=== PATIENT | female | born 1965 | race Caucasian/White ===

== ENCOUNTER → 2022-08-03 11:00 | Outpatient (BNVA) | payer SELFPAY | PROVIDERS: Family Provider Family Medicine; PCP Family Medicine; Visit Provider Family Medicine | DX: E11.65 Type 2 diabetes mellitus with hyperglycemia (principal); I10 Essential (primary) hypertension | CPT/HCPCS: 83036 ==

== ENCOUNTER → 2022-08-13 08:52 | Outpatient (BNVA) | payer SELFPAY | PROVIDERS: Family Provider Family Medicine; PCP Family Medicine; Visit Provider Family Medicine | DX: I10 Essential (primary) hypertension (principal); E11.9 Type 2 diabetes mellitus without complications | CPT/HCPCS: 80053; 80061; 84439; 84443; 85025 ==

== ENCOUNTER 2022-10-23 11:19 | Outpatient (CLI) | payer SELFPAY ==
--- NOTE | 2022-10-23 11:15 | USCV_ITS ---
Judith Poole Age: 57 Gender: F : 1965 Exam Date: 10/23/2022 11:48 Ordering Phys: Sergo Wyman M.D ([email or web address]) Technologist: CRYSTAL Exam Location: [facility] – [place] Indication: SHORTNESS OF BREATH, ABNORMAL HEART RATE BP: 114 / 88 HR: 91 Rhythm: Sinus Technical Quality: Adequate MEASUREMENTS (Male / Female) Normal Values 2D ECHO LVOT Diameter 2.0 cm LV Ejection Fraction MOD 2C 59.2 % LV Ejection Fraction 2C AL 58.3 % LA Diameter 3.6 cm LA Width 3.3 cm LA Height 4.8 cm RA Width 3.2 cm RA Height 4.0 cm Aorta at Sinotubular Diameter 2.8 cm M-MODE Aortic Annulus Diameter 2.8 cm LA Ao Ratio MM 1.3 MV E Point Septal Separation 0.5 cm DOPPLER AV Peak Velocity 140.0 cm/s LVOT Peak Velocity 121.0 cm/s AV Area Cont Eq vti 2.6 cm squared AV Area Cont Eq pk 2.7 cm squared MV Peak Velocity 115.0 cm/s MV Area PHT 4.0 cm squared Mitral E to A Ratio 0.8 MV E' Velocity 46.0 cm/s Mitral E to MV E' Ratio 7.8 Mitral E to LV E' Lateral Ratio 7.5 Mitral E to LV E' Septal Ratio 8.2 TR Peak Velocity 149.6 cm/s TR Peak Gradient 9.0 mmHg TR Mean Velocity 107.9 cm/s TR Mean Gradient 5.2 mmHg TR Velocity Time Integral 38.7 cm TV Peak E Velocity 75.0 cm/s Right Atrial Pressure 8.0 mmHg Pulmonary Artery Systolic Pressu 17.0 mmHg PV Peak Velocity 120.0 cm/s RV Acceleration Time 0.1 s RV Ejection Time 0.3 s RV AcT/ET 0.5 FINDINGS Left Ventricle Technically limited quality echocardiogram because of poor ultrasonic windows. LV systolic function is normal with EF 55 to 60%. No regional wall motion abnormalities are seen. Grade 1 diastolic dysfunction Right Ventricle Not well visualized Right Atrium Grossly normal. Left Atrium Grossly normal Mitral Valve Grossly normal. Trace mitral regurgitation. Aortic Valve Not well-visualized. No significant stenosis or regurgitation is seen. Tricuspid Valve Not well-visualized. Mild tricuspid regurgitation. Pulmonary artery systolic pressure is normal. Pulmonic Valve Not well visualized Pericardium Normal Aorta Normal in size IVC Not well visualized CONCLUSIONS Technically limited quality echocardiogram. LV systolic function is normal with EF of 55 to 60%. Grade 1 diastolic dysfunction Trace mitral regurgitation Mild tricuspid regurgitation No comparison studies are available Sergo Wyman MD (Electronically Signed) Final Date: 31 October 2022 11:41 S
[2022-10-23] MEDS: perflutren protein-a microsphr 0.22 mg/mL SDV 3 mL IV (12:23)
== END 2022-10-23 11:20 | disposition home or self-care (01) ==
PROVIDERS: PCP Family Medicine; Visit Provider Internal Medicine
DX: R06.02 Shortness of breath (principal); I49.9 Cardiac arrhythmia, unspecified; I08.1 Rheumatic disorders of both mitral and tricuspid valves
CPT/HCPCS: C8929; Q9956

== ENCOUNTER → 2025-09-26 13:30 | Outpatient (BNVA) | payer SELFPAY | PROVIDERS: PCP Family Medicine; Visit Provider Family Medicine | DX: R79.89 Other specified abnormal findings of blood chemistry (principal); E55.9 Vitamin D deficiency, unspecified; I10 Essential (primary) hypertension; E11.9 Type 2 diabetes mellitus without complications | CPT/HCPCS: 80053; 80061; 82306; 82607; 83036; 84439; 84443; 85025 ==